=== PATIENT | male | born 1985 | race African-American/Black ===

== ENCOUNTER 2020-06-06 14:16 | Emergency (ER) | payer SELFPAY ==
[~2020-06-06] VITALS: Ht 177.8 cm; Wt 82.0 kg
[2020-06-06] MEDS ORDERED: ONDANSETRON HCL 4MG/2ML INJ IV STA (14:29)
[2020-06-06] MEDS ORDERED: LEVETIRACETAM 1000MG/100ML 100 ML IV ONE (14:30)
[2020-06-06] MEDS ORDERED: SODIUM CHLORIDE 0.9% 1,000 ML IV ONE (14:30)
[2020-06-06 15:28] LABS: BASOPHILS % 0.9 % (0.0-2.0); EOSINOPHILS % 1.2 % (0.0-5.0); HEMATOCRIT. 41.4 % (42.0-52.0); HEMOGLOBIN. 13.3 g/dL (14.0-18.0); LYMPHOCYTES % 41.3 % (20.0-50.0); MEAN CORPUSCULAR HEMOGLOBIN 26.8 pg (28.0-32.0); MEAN PLATELET VOLUME 7.8 fl (7.4-10.4); MONOCYTES % 7.3 % (2.0-8.0); NEUTROPHILS % 49.3 % (40.0-76.0); PLATELET 308 x1000/uL (130-400); RED BLOOD CELL COUNT 4.98 mill/uL (4.7-6.1); RED CELL DISTRIBUTION WIDTH 14.9 % (11.6-14.6)
[2020-06-06 15:30] LABS: CHLORIDE 98 mEq/L (98-107)
[2020-06-06 15:30] LABS: CLARITY URINE CLEAR (CLEAR); COLOR URINE YELLOW (YELLOW); KETONES URINE NEGATIVE (NEGATIVE); LEUKOCYTE ESTERASE URINE NEGATIVE (NEGATIVE); NITRITE URINE NEGATIVE (NEGATIVE); OCCULT BLOOD URINE 2+ (NEGATIVE); PROTEIN URINE 1+ (NEGATIVE); SPECIFIC GRAVITY URINE 1.014 (1.005-1.030); UROBILINOGEN URINE 0.2 E.U./dL (0.2-1.0)
[2020-06-06 15:34] LABS: ETHANOL BLOOD < 10 mg/dL
[2020-06-06 15:49] LABS: *AMPHETAMINES SCREEN URINE NEGATIVE (NEGATIVE); *BARBITURATES SCREEN URINE NEGATIVE (NEGATIVE); *BENZODIAZEPINES SCREEN URINE NEGATIVE (NEGATIVE)
[2020-06-06 15:50] LABS: *COCAINE SCREEN URINE NEGATIVE (NEGATIVE); CANNABINOID URINE SCREEN NEGATIVE (NEGATIVE); METHADONE URINE SCREEN NEGATIVE (NEGATIVE); OPIATES URINE SCREEN NEGATIVE (NEGATIVE); PHENCYCLIDINE URINE SCREEN NEGATIVE (NEGATIVE)
[2020-06-06 17:40] VITALS: BP 110/62
== END 2020-06-06 17:50 | disposition home or self-care (01) ==
LOC: ER 14:16
DX: G40.909 Epilepsy, unspecified, not intractable, without status epilepticus (principal); R10.9 Unspecified abdominal pain
CPT/HCPCS: 36415; 80053; 80305; 80320; 81003; 85025; 93005; 96365; 96375; 99285; J1953; J2405; J7030; G0480